=== PATIENT | female | born 1990 | race Caucasian/White ===

== ENCOUNTER 2017-03-20 11:34 | Emergency (ER) | payer MEDICARE, MEDICAID ==
[~2017-03-20] VITALS: Ht 160 cm; Wt 60.2 kg
[~2017-03-20 11:34] MED LIST: ADAL1INJ; PROM25TA5 PO; ZITH250T PO
[2017-03-20 11:46] VITALS: BP 114/56; PULSE 83; RESP 16; TEMP 98; O2SAT 98
--- NOTE | 2017-03-20 11:49 | PD ---
HPI Chief Complaint: Musculoskeletal Complaint Time Seen by Provider: 11:49 Travel History International Travel<30 days: No Contact w/Intl Traveler<30days: No Traveled to known affect area: No History of Present Illness HPI 26-year-old female presents the emergency department with one week history of right MIP joint pain of the great toe. Patient has no history of injury. His history of gout in the past. She does have a history of bunionectomy of the left foot several years ago for similar symptoms. Patient has a history of ulcerative colitis which she does not currently take any medications for. Patient states the pain is worsening and she has been taking Tylenol without improvement. Patient has no known drug allergies. PFSH Past Medical History Anxiety: No Depression: No Cardiovascular Problems: No Diminished Hearing: No Gastrointestinal Disorders: Yes (COLITIS) Genitourinary: No Neurologic: No Psychiatric: No Respiratory: No Immunizations Current: No PNEUMOCCOCAL Vaccine (Year): 2 ?: Not LMP: mirena : 2 Para: 1 Ovarian Cysts: Yes Past Surgical History Other Surgery: No Social History Alcohol Use: Yes Tobacco Use: No Substance Use: No Allergies-Medications (Allergen,Severity, Reaction): Coded Allergies: No Known Allergies (Verified , 03/20/17) Reported Meds & Prescriptions Reported Meds & Active Scripts Active Prednisone 20 Mg Tab 20 Mg PO BID Review of Systems Musculoskeletal: Positive: Arthralgias, Limited ROM, Pain Physical Exam Narrative GENERAL: Patient appears in no acute distress. She is ambulatory to the exam room. SKIN: Warm and dry. Normal color. Normal turgor. Mild erythema over the MIP joint of the right great toe. HEAD: Atraumatic. Normocephalic. EYES: Pupils equal and round. No scleral icterus. No injection or drainage. ENT: No nasal bleeding or discharge. Mucous membranes pink and moist. Thanks is clear. Airway is patent. NECK: Trachea midline. Supple and nontender. CARDIOVASCULAR: Regular rate and rhythm. RESPIRATORY: No accessory muscle use. Clear to auscultation. Breath sounds equal bilaterally. GASTROINTESTINAL: Abdomen soft, non-tender, nondistended. Hepatic and splenic margins not palpable. MUSCULOSKELETAL: Extremities without clubbing, cyanosis, or edema. Patient appears to have valgus deviation of the right MIP joint with localized erythema and swelling consistent with bunion flare. The area is tender with palpation and motion. It has localized warmth. No signs of infection are noted. No other significant findings are noted. NEUROLOGICAL: Awake and alert. No obvious cranial nerve deficits. Motor grossly within normal limits. Five out of 5 muscle strength in the arms and legs. Normal speech. PSYCHIATRIC: Appropriate mood and affect; insight and judgment normal. Data Data Last Documented VS Vital Signs Date Time Temp Pulse Resp B/P Pulse Ox O2 Delivery O2 Flow Rate FiO2 03/20/17 11:46 98.0 83 16 114/56 98 Orders Prednisone (Deltasone) (03/20/17 12:15) Foot, Complete (Ayt0anm) (03/20/17 12:05) [facility] Medical Decision Making Medical Screen Exam Complete: Yes Emergency Medical Condition: Yes Differential Diagnosis Gouty arthritis. Symptomatic bunion. Cellulitis. Narrative Course Patient is felt to have a symptomatic bunion of the right great toe MIP joint. She'll be treated with prednisone 40 mg now followed by 20 mg twice a day 7 days. Patient can take Tylenol as well as needed. X-rays of the right foot are ordered. X-ray shows developing bunion. Patient was referred to Dr. Pandya, the cab driver on-call for further evaluation and treatment. Diagnosis Primary Impression: Bunion of great toe of right foot Referrals: Margarita Pandya Juan call for appointment Patient Instructions: Bunion (ED), General Instructions Additional Instructions: Patient is felt to have a symptomatic bunion of the right great toe MIP joint. She'll be treated with prednisone 40 mg now followed by 20 mg twice a day 7 days. Patient can take Tylenol as well as needed. X-rays of the right foot are ordered. X-ray shows developing bunion. Patient was referred to Dr. Pandya, the cab driver on-call for further evaluation and treatment. Med/Other Pt SpecificInfo: Prescription(s) given Scripts Prednisone 20 Mg Tab20 Mg PO BID #14 TAB Prov:Juan Antonio Kohler MD 03/20/17 Disposition: 01 DISCHARGE HOME Condition: Stable Evelio Powell Mar 20, 2017 11:49 Evelio Powell Mar 20, 2017 11:49
[2017-03-20] MEDS ORDERED: PRED20 PO (12:13)
[2017-03-20] MEDS ORDERED: predniSONE 20 MG TAB PO ONE (12:15)
--- NOTE | 2017-03-20 13:07 | RADRPT ---
EXAM DATE/TIME: 03/20/2017 12:15 [facility] COMPARISON: No previous studies available for comparison. INDICATIONS : Right foot pain with no known injury MEDICAL HISTORY : Broken right heel SURGICAL HISTORY : None. ENCOUNTER: Initial ACUITY: 1 week PAIN SCORE: 8/10 LOCATION: Right plantar 1st metatarsal FINDINGS: No definite fractures, or dislocations are identified. No definite lytic or sclerotic lesion is seen . The joint spaces are well maintained. There is slight soft tissue swelling adjacent to the first m etatarsophalangeal joint. CONCLUSION: Nondescript soft tissue swelling. Davion Lambert MD on March 20, 2017 at 13:04 Board Certified Radiologist. This report was verified electronically.
== END 2017-03-20 12:49 | disposition home or self-care (01) ==
LOC: PHEFT 11:34
DX: M21.611 Bunion of right foot (principal); Z87.19 Personal history of other diseases of the digestive system
CPT/HCPCS: 73630; 99283; J7512